=== PATIENT | female | born 1970 | race Caucasian/White ===

== ENCOUNTER 2021-04-22 16:19 | Observation (INO) ==
--- NOTE | 2021-04-22 16:27 | Emergency Department Note ---
Impression & Plan Stroke-like symptoms, Acute confusion, Slurred speech ED Provider Note Name: MADELINE DE LA CRUZ Age: 51 Sex: F Arrives Via: Ambulance Informant: Patient, EMS, Outpatient Physicians ED Provider: Devan Sanders MD Chief Complaint: stroke evaluation Impression: As Per Impressions Above Medical Decision Makin yr old healthy female with history migraines and previous Gastric Bypass arrives for evaluation of stroke like symptoms. Acute onset of confusion with slurred speech during zoom meeting this afternoon. Patient sent to ED emergently. On arrival without slurred speech nor significant confusion, though slightly slow to respond. No neuro focal deficits appreciated and with improving symptoms TPA would not be indicated. She was taken emergently to to CT for head/neck angio which was fortunately negative. Labs unremarkable. She has mostly cleared by repeat evaluations and looks well. Patient does have long history frequent migraines, and I could imagine this being complex atypical migraine, however she will clearly need further TIA work-up. She is not septic nor does she appear acutely under influence of substance. She did have BSG done in clinic and by EMS which was unremarkable. Hospitalist in to evaluate further. Prior Medical Record and Triage/Nursing Notes reviewed by Me Additional history obtained from chart and outpatient providers and ems Differentials:Infection, dehydration, metabolic abnormality, hypo/hyperglycemia, electrolyte disturbance, anemia, hypoxia, cardiac sources, intracerebral event, toxicologic, neurologic, as well as other pathologies. Vital Signs: reviewed and remarkable for no significant abnormalities Interventions: asa 324mg po Labs:Reviewed and remarkable for no significant abnormalities Imaging:See Below EKG:Per My Interpretation: Indication Stroke like symptoms: NSR 74 bpm, qtc 428. No Ectopy. No Ischemia. no previous for comparison Consults:Raj Hospitalist Plan: Disposition:Hospitalization. Condition: Good History of Present Illness:51 yr old female arrives for evaluation of stroke like symptoms. Patient with sudden onset confusion and slurred speech around 3:15 pm this afternoon. Noted as she was on a Zoom call at that time. 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 She notes that she has been dealing with some vertigo issues for the last 6 months which included MRI 6 months ago which she reports was negative. Stated she was feeling well other than didn't have lunch today. When symptoms started she ate some cake without improvement in symptoms. She notes she just feels foggy now. No further slurred speech and EMS notes that her speech has been alright on the way in. Patient without vision changes, focal deficits, headache, neck pain, cp, sob, syncope, nor other symptoms. No recent trauma nor injuries. Nothing makes better nor worse. No history of similar. History of migraines which she notes this is not similar to. ROS: See above HPI for pertinent positives & negatives. A total of 10 systems reviewed and were otherwise negative. Past Medical History:See Below Past Surgical History:See Below Family History:See Below Social History:See Below Home Medications:See Below Allergies:NKDA Vitals:Blood Pressure: 122/81, Pulse 75, RR 19, T 36.9C, O2 98% on RA Physical Exam: GENERAL: Patient is tired appearing and in minimal distress. EYES: No scleral icterus, unremarkable pupils. ENT: Mucous membranes moist, no nasal congestion. NECK: No masses appreciated, nomeningismus, trachea is midline. RESPIRATORY: No dyspnea. Clear to auscultation and equal bilaterally. No wheeze, no rhonchi. CARDIOVASCULAR: Regular rate and rhythm.No murmurs, rubs, gallops appreciated. GASTROINTESTINAL: Abdomen soft, non-tender, no peritonitis.Bowel sounds positive.No masses appreciated. BACK: No midline tenderness, no CVA tenderness EXTREMITIES: Normal motion all extremities, no cyanosis, no edema. NEUROLOGIC: Alert and oriented, no acute motor or sensory deficits, no focal weakness, cranial nerves grossly intact. SKIN: No rash, no jaundice, no diaphoresis. PSYCH: Appropriate GCS: 15 ED Course: Times/Reassessments: stable, feeling better and looks well Devan Sanders MD Past Med/Surg History Medical History Depression Insomnia Iron deficiency anemia Migraine Mitral valve prolapse Primary hyperparathyroidism Senile osteoporosis Surgical History History of x2 History of cholecystectomy History of colonoscopy History of reduction mammoplasty History of Fermin-en-Y gastric bypass Family History Mother Malignant melanoma Depression Denies family history of Stroke Social History Smoking Status: Former smoker packs per day: 5; Years Smoked: 16; Smoking End Date: 1998; Hx Alcohol Use: Yes Alcohol Intake Frequency: Monthly or Less Hx Substance Use: No Preferred Language: Turkish Communication Ability: Effective Hospice Clinical Manager Required: No Beliefs That Will Affect Care: None marital status: Current Living Situation: Family current occupational status: employed 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 [employer] Other Information That Helps Us Care for You: No Feels Safe at Home: Yes Safety Concerns: Feels Safe At This Time Assistive Devices: Glasses Allergies Allergies Allergy/AdvReac Type Severity Reaction Status Date / Time No Known Drug Allergies Allergy ` Verified 04/22/21 18:02 Home Meds Home Medications Medication Instructions Recorded Confirmed bupropion HCl 300 mg 24 hr tablet, 300 mg PO DAILY 04/22/21 04/22/21 extended release buspirone 10 mg tablet 10 mg PO HS 04/22/21 04/22/21 erenumab-aooe 70 mg/mL 70 mg SUBCUT MO 04/22/21 04/22/21 subcutaneous auto-injector (Aimovig Autoinjector) escitalopram oxalate 20 mg tablet 20 mg PO HS 04/22/21 04/22/21 ibuprofen 200 mg tablet (Advil) 600 mg PO Q6H PRN 04/22/21 04/22/21 lorazepam 1 mg tablet 1 mg PO BID PRN 04/22/21 04/22/21 sumatriptan succinate 6 mg/0.5 mL 6 mg SUBCUT BID PRN 04/22/21 04/22/21 subcutaneous solution zolpidem 10 mg tablet 10 mg PO HS 04/22/21 04/22/21 Results & Data (ED) Vital Signs Vital Signs - 24 hr 04/22/21 16:33 Temperature 36.9 C Temperature Source Oral Pulse Rate 75 Respiratory Rate 19 Respiratory Effort / Characteristics Non-Labored Spontaneous Respiratory Depth Normal Respiratory Pattern Regular Blood Pressure 122/81 Blood Pressure Mean 94 Blood Pressure Position Lying Pulse Oximetry 98 Oxygen Delivery Method Room Air Sepsis Recent Fever Within 48 Hours No Sepsis New/Unexplained Change in Mental Status N/A Sepsis Action Taken by Nursing No Action Required Laboratory Data Result diagrams: 04/23/21 08:00 04/23/21 08:00 Lab Results 04/22/21 04/22/21 04/22/21 Range/Units 16:30 16:30 16:30 WBC 7.23 (4.8-10.8) K/uL RBC 4.16 L (4.2-5.4) M/uL Hgb 12.9 (12.0-16.0) g/dL POC Hgb (12.0-16.0) g/dl Hct 39.0 (37-47) % POC Hct (37-47) % MCV 93.8 (80-100) fL MCH 31.0 (25-34) pg MCHC 33.1 (32-36) g/dL RDW Std Deviation 45.0 (36.4-46.3) fL RDW Coeff of Syed 13.1 (11.5-14.5) % Plt Count 293 (130-400) K/uL MPV 9.1 (7.4-10.4) fL Immature Gran % (Auto) 0.1 % Neut % (Auto) 77.1 % Lymph % (Auto) 13.7 % Pine % (Auto) 8.2 % Eos % (Auto) 0.6 % Baso % (Auto) 0.3 % Neut # (Auto) 5.58 (1.4-6.5) K/uL Lymph # (Auto) 0.99 L (1.2-3.4) K/uL Pine # (Auto) 0.59 (0.11-0.59) K/uL Eos # (Auto) 0.04 (0-0.5) K/uL Baso # (Auto) 0.02 (0-0.2) K/uL Immature Gran # (Auto) 0.01 (0.00-0.02) K/uL PT 9.9 (9.0-12.0) Seconds INR 1.0 (0.9-1.1) APTT 24.8 (21.0-31.0) Seconds PTT Ratio 0.9 POC Sodium (135-144) mmol/L Sodium 134 L (136-145) mmol/L POC Potassium (3.3-5.0) mmol/L Potassium 3.6 (3.5-5.1) mmol/L POC Chloride (101-112) mmol/L Chloride 101 (98-107) mmol/L Carbon Dioxide 29 (21-32) mmol/L POC Total CO2 (24-31) mmol/L Anion Gap 4.0 (3-11) POC Anion Gap (16-25) mmol/L POC BUN (7-18) mg/dl BUN 10 (7-18) mg/dl Creatinine 0.67 (0.6-1.2) mg/dl POC Creatinine (0.6-1.3) mg/dl Est Cr Clr Drug Dosing 87.0 ml/min Est GFR ( Amer) 117.1 ml/min Est GFR (Non-Af Amer) 101.1 ml/min BUN/Creatinine Ratio 14.7 (10-20) Glucose 87 (70-99) mg/dl POC Glucose (other) (70-99) mg/dl Calcium 8.7 (8.5-10.1) mg/dl POC Ioniz Calcium Fady (1.12-1.32) mmol/l Magnesium 3.3 H (1.8-2.4) mg/dl Total Bilirubin 0.2 (0.2-1) mg/dl AST 18 (15-37) U/L ALT 32 (12-78) U/L Alkaline Phosphatase 78 (45-117) U/L Troponin I < 0.015 (0-0.045) ng/ml Total Protein 7.2 (6.4-8.2) gm/dl Albumin 3.6 (3.4-5.0) gm/dl Globulin 3.6 (2.5-4.0) gm/dl Albumin/Globulin Ratio 1.0 (0.9-2) COVID-19 Eval Order SARS-CoV-2 (PCR) (Negative) Blood Type Antibody Screen 04/22/21 04/22/21 04/22/21 Range/Units 16:40 16:49 16:53 WBC (4.8-10.8) K/uL RBC (4.2-5.4) M/uL Hgb (12.0-16.0) g/dL POC Hgb 13.3 (12.0-16.0) g/dl Hct (37-47) % POC Hct 39 (37-47) % MCV (80-100) fL MCH (25-34) pg MCHC (32-36) g/dL RDW Std Deviation (36.4-46.3) fL RDW Coeff of Syed (11.5-14.5) % Plt Count (130-400) K/uL MPV (7.4-10.4) fL Immature Gran % (Auto) % Neut % (Auto) % Lymph % (Auto) % Pine % (Auto) % Eos % (Auto) % Baso % (Auto) % Neut # (Auto) (1.4-6.5) K/uL Lymph # (Auto) (1.2-3.4) K/uL Pine # (Auto) (0.11-0.59) K/uL Eos # (Auto) (0-0.5) K/uL Baso # (Auto) (0-0.2) K/uL Immature Gran # (Auto) (0.00-0.02) K/uL PT (9.0-12.0) Seconds INR (0.9-1.1) APTT (21.0-31.0) Seconds PTT Ratio POC Sodium 137 (135-144) mmol/L Sodium (136-145) mmol/L POC Potassium 3.7 (3.3-5.0) mmol/L Potassium (3.5-5.1) mmol/L POC Chloride 96 L (101-112) mmol/L Chloride (98-107) mmol/L Carbon Dioxide (21-32) mmol/L POC Total CO2 27 (24-31) mmol/L Anion Gap (3-11) POC Anion Gap 19.0 (16-25) mmol/L POC BUN 9 (7-18) mg/dl BUN (7-18) mg/dl Creatinine (0.6-1.2) mg/dl POC Creatinine 0.6 (0.6-1.3) mg/dl Est Cr Clr Drug Dosing ml/min Est GFR ( Amer) ml/min Est GFR (Non-Af Amer) ml/min BUN/Creatinine Ratio (10-20) Glucose (70-99) mg/dl POC Glucose (other) 87 (70-99) mg/dl Calcium (8.5-10.1) mg/dl POC Ioniz Calcium Fady 1.15 (1.12-1.32) mmol/l Magnesium (1.8-2.4) mg/dl Total Bilirubin (0.2-1) mg/dl AST (15-37) U/L ALT (12-78) U/L Alkaline Phosphatase (45-117) U/L Troponin I (0-0.045) ng/ml Total Protein (6.4-8.2) gm/dl Albumin (3.4-5.0) gm/dl Globulin (2.5-4.0) gm/dl Albumin/Globulin Ratio (0.9-2) COVID-19 Eval Order Covid19 at [facility] SARS-CoV-2 (PCR) (Negative) Blood Type A Positive Antibody Screen NEGATIVE 04/22/21 Range/Units 16:53 WBC (4.8-10.8) K/uL RBC (4.2-5.4) M/uL Hgb (12.0-16.0) g/dL POC Hgb (12.0-16.0) g/dl Hct (37-47) % POC Hct (37-47) % MCV (80-100) fL MCH (25-34) pg MCHC (32-36) g/dL RDW Std Deviation (36.4-46.3) fL RDW Coeff of Syed (11.5-14.5) % Plt Count (130-400) K/uL MPV (7.4-10.4) fL Immature Gran % (Auto) % Neut % (Auto) % Lymph % (Auto) % Pine % (Auto) % Eos % (Auto) % Baso % (Auto) % Neut # (Auto) (1.4-6.5) K/uL Lymph # (Auto) (1.2-3.4) K/uL Pine # (Auto) (0.11-0.59) K/uL Eos # (Auto) (0-0.5) K/uL Baso # (Auto) (0-0.2) K/uL Immature Gran # (Auto) (0.00-0.02) K/uL PT (9.0-12.0) Seconds INR (0.9-1.1) APTT (21.0-31.0) Seconds PTT Ratio POC Sodium (135-144) mmol/L Sodium (136-145) mmol/L POC Potassium (3.3-5.0) mmol/L Potassium (3.5-5.1) mmol/L POC Chloride (101-112) mmol/L Chloride (98-107) mmol/L Carbon Dioxide (21-32) mmol/L POC Total CO2 (24-31) mmol/L Anion Gap (3-11) POC Anion Gap (16-25) mmol/L POC BUN (7-18) mg/dl BUN (7-18) mg/dl Creatinine (0.6-1.2) mg/dl POC Creatinine (0.6-1.3) mg/dl Est Cr Clr Drug Dosing ml/min Est GFR ( Amer) ml/min Est GFR (Non-Af Amer) ml/min BUN/Creatinine Ratio (10-20) Glucose (70-99) mg/dl POC Glucose (other) (70-99) mg/dl Calcium (8.5-10.1) mg/dl POC Ioniz Calcium Fady (1.12-1.32) mmol/l Magnesium (1.8-2.4) mg/dl Total Bilirubin (0.2-1) mg/dl AST (15-37) U/L ALT (12-78) U/L Alkaline Phosphatase (45-117) U/L Troponin I (0-0.045) ng/ml Total Protein (6.4-8.2) gm/dl Albumin (3.4-5.0) gm/dl Globulin (2.5-4.0) gm/dl Albumin/Globulin Ratio (0.9-2) COVID-19 Eval Order SARS-CoV-2 (PCR) NEGATIVE (Negative) Blood Type Antibody Screen Administered Medications Acetaminophen (Acetaminophen 325 Mg Tab) 650 mg PO Q4H PRN PRN Reason: Pain or Fever Stop: 05/22/21 22:44 Last Admin: 04/23/21 10:59 Dose: 650 mg Documented by: [id number] Admin: 04/22/21 23:51 Dose: 650 mg Documented by: [id number] Aspirin (Aspirin 81 Mg Ectab) [facility] Stop: 05/23/21 08:59 Last Admin: 04/23/21 08:42 Dose: 81 mg Documented by: [id number] Bupropion HCl (Bupropion Xl 300 Mg Tabcr) 300 mg PO DAILY [facility] Stop: 05/23/21 08:59 Last Admin: 04/23/21 08:42 Dose: 300 mg Documented by: [id number] Buspirone HCl (Buspirone 5 Mg Tab) 10 mg PO DIMA Stop: 05/22/21 22:59 Last Admin: 04/22/21 23:52 Dose: 10 mg Documented by: [id number] Enoxaparin Sodium (Enoxaparin Inj 40 Mg/0.4 Ml Syr) 40 mg SQ Q24H DIMA Stop: 05/23/21 08:59 Last Admin: 04/23/21 08:42 Dose: 40 mg Documented by: [id number] Escitalopram Oxalate (Escitalopram Oxalate 20 Mg Tab) 20 mg PO DIMA Stop: 05/22/21 22:59 Last Admin: 04/22/21 23:52 Dose: 20 mg Documented by: [id number] Sodium Chloride (Nss 1000ml) 1,000 mls @ 80 mls/hr IV .[id number] ONE Stop: 04/23/21 21:32 Last Admin: 04/23/21 09:44 Dose: 80 mls/hr Documented by: [id number] Zolpidem Tartrate (Zolpidem Tartrate 10 Mg Tab) 10 mg PO [facility] Stop: 05/22/21 22:59 Last Admin: 04/22/21 23:51 Dose: 10 mg Documented by: [id number] Discontinued Medications Aspirin (Aspirin 81 Mg Chew) 324 mg PO NOW STA Stop: 04/22/21 17:27 Last Admin: 04/22/21 18:18 Dose: 324 mg Documented by: [id number] Gadobutrol (Gadobutrol 65ml Vial) 7 ml IV ONCE ONE Stop: 04/22/21 22:09 Last Admin: 04/22/21 22:08 Dose: 7 ml Documented by: [id number] Lorazepam (Ativan) 0.25 mg in 0.5 mls @ 0.5 mls/min IV NOW STA Stop: 04/22/21 21:10 Last Admin: 04/22/21 21:17 Dose: 0.5 mls/min Documented by: [id number] Ioversol (Optiray 320 125ml) 120 ml IV ONCE ONE Stop: 04/22/21 16:47 Last Admin: 04/22/21 16:47 Dose: 120 ml Documented by: [id number] Imaging Data Radiologist's Impression: Head CT 04/22/21 16:29 CT head/brain wo con CLINICAL HISTORY: Stroke Like Symptoms . Dizziness and confusion COMPARISON STUDY: No previous studies for comparison. TECHNIQUE: Standard CT of the Brain was performed without IV contrast. A dose lowering technique was utilized adhering to the principles of ALARA. FINDINGS: Extraaxial space: There is no evidence for subdural hematoma. There are no extra-axial fluid collections. Ventricles and cisterns: The ventricles are normal in size and configuration. There is no evidence for midline shift or mass effect. Parenchyma: There is no subarachnoid or intraparenchymal hemorrhage. There is no evidence for an acute infarct or cerebral edema. There is homogeneous attenuation of the brain parenchyma. There are no gross mass lesions. Osseous structures: There is no evidence for an acute fracture. The visualized paranasal sinuses are clear. The mastoid air cells are clear bilaterally. Soft tissues: There is no evidence for focal soft tissue swelling. IMPRESSION: No acute intracerebral pathology. ACT 112: Negative or not required by law. Electronically signed by: Abdelrahman Comer M.D. 04/22/2021 4:49 PM Discharge Plan Visit Data Chief Complaint: Stroke/CVA Symptoms Stated Complaint: STROKE SX ED Provider: Devan Sanders Discharge Problem: Stroke-like symptoms, Acute confusion, Slurred speech Patient Disposition: Admitted As Inpatient Discharge Instructions Interventions: ED Discharge Assessment Last Done: 04/22/21 22:00
[2021-04-22 16:46] LABS: Basophils # (auto) 0.02 K/uL (0-0.2); Basophils % (auto) 0.3 %; Eosinophils # (auto) 0.04 K/uL (0-0.5); Eosinophils % (auto) 0.6 %; Hemoglobin 12.9 g/dL (12.0-16.0); Immature Granulocytes # (auto) 0.01 K/uL (0.00-0.02); Immature Granulocytes % (auto) 0.1 %; Lymphocytes # (auto) 0.99 K/uL (1.2-3.4); Lymphocytes % (auto) 13.7 %; Mean Corpuscular Hgb Conc 33.1 g/dL (32-36); Mean Corpuscular Volume 93.8 fL (80-100); Mean Platelet Volume 9.1 fL (7.4-10.4); Monocytes # (auto) 0.59 K/uL (0.11-0.59); Monocytes % (auto) 8.2 %; Neutrophils # (auto) 5.58 K/uL (1.4-6.5); Neutrophils % (auto) 77.1 %; Platelet Count 293 K/uL (130-400); RDW Coefficient of Variation 13.1 % (11.5-14.5); Red Blood Count 4.16 M/uL (4.2-5.4); White Blood Count 7.23 K/uL (4.8-10.8)
[2021-04-22] MEDS ORDERED: OPTIRAY 320 125ml IV ONE (16:46)
--- NOTE | 2021-04-22 16:50 | CT Scan Report ---
CT head/brain wo con CLINICAL HISTORY: Stroke Like Symptoms . Dizziness and confusion COMPARISON STUDY: No previous studies for comparison. TECHNIQUE: Standard CT of the Brain was performed without IV contrast. A dose lowering technique was utilized adhering to the principles of ALARA. FINDINGS: Extraaxial space: There is no evidence for subdural hematoma. There are no extra-axial fluid collecti ons. Ventricles and cisterns: The ventricles are normal in size and configuration. There is no evidence f or midline shift or mass effect. Parenchyma: There is no subarachnoid or intraparenchymal hemorrhage. There is no evidence for an acu te infarct or cerebral edema. There is homogeneous attenuation of the brain parenchyma. There are no gross mass lesions. Osseous structures: There is no evidence for an acute fracture. The visualized paranasal sinuses are clear. The mastoid air cells are clear bilaterally. Soft tissues: There is no evidence for focal soft tissue swelling. IMPRESSION: No acute intracerebral pathology. ACT 112: Negative or not required by law. Electronically signed by: Abdelrahman Comer M.D. 04/22/2021 4:49 PM
[2021-04-22 16:52] LABS: iSTAT Creatinine 0.6 mg/dl (0.6-1.3); iSTAT Hemoglobin 13.3 g/dl (12.0-16.0); iSTAT Ionized Calcium 1.15 mmol/l (1.12-1.32); iSTAT Potassium 3.7 mmol/L (3.3-5.0)
[2021-04-22 16:58] LABS: Partial Thromboplastin Ratio 0.9; Partial Thromboplastin Time 24.8 Seconds (21.0-31.0); Prothrombin Time 9.9 Seconds (9.0-12.0)
[2021-04-22 17:00] LABS: Alanine Aminotransferase 32 U/L (12-78); Albumin Level 3.6 gm/dl (3.4-5.0); Aspartate Aminotransferase 18 U/L (15-37); BUN Creatinine Ratio 14.7 (10-20); Blood Urea Nitrogen 10 mg/dl (7-18); Calcium 8.7 mg/dl (8.5-10.1); Carbon Dioxide 29 mmol/L (21-32); Chloride 101 mmol/L (98-107); Est GFR (African American) 117.1 ml/min; Est GFR (Non-African American) 101.1 ml/min; Glucose 87 mg/dl (70-99); Magnesium 3.3 mg/dl (1.8-2.4); Potassium 3.6 mmol/L (3.5-5.1); Sodium 134 mmol/L (136-145)
[2021-04-22 17:05] LABS: Alkaline Phosphatase 78 U/L (45-117); Bilirubin,Total 0.2 mg/dl (0.2-1); Globulin 3.6 gm/dl (2.5-4.0); Total Protein 7.2 gm/dl (6.4-8.2); Troponin I < 0.015 ng/ml (0-0.045)
--- NOTE | 2021-04-22 17:10 | CT Scan Report ---
CT angio neck with con, CT angio head w con CLINICAL HISTORY: 51 years-old Female with Stroke Like Symptoms. Acute strokelike symptoms COMPARISON STUDY: CT head of same day TECHNIQUE: Following the IV administration of 120 mL of Optiray, CT angiogram of the head and neck wa s performed from the aortic arch to the skull apex. Images are reviewed in the axial, sagittal, and c oronal planes. 3-D MIPS images are created and assessed. IV contrast was administered without complic ation. All measurements were calculated based on NASCET criteria. A dose lowering technique was util ized adhering to the principles of ALARA. CT DOSE: 1114.01 mGy.cm FINDINGS: 4 vessel morphology of the thoracic aortic arch. Patency of the innominate and imaged subclavian gladis alfredito. The common and internal carotid arteries are widely patent. The middle and anterior cerebral ar teries are widely patent. The left vertebral artery originates directly from the aortic arch. Codomin ant and widely patent vertebral arteries. The basilar and posterior cerebral arteries are patent. Cer ebral venous sinuses are patent. There is no abnormal intracranial enhancement. No aneurysm, dissecti on, high-grade stenosis or arterial occlusion. Lung apices are clear. No pneumothorax. Unremarkable thyroid. Unremarkable soft tissues. No acute fra cture. Degenerative changes of the cervical spine. Mastoid air cells and paranasal sinuses are clear. IMPRESSION:Unremarkable CTA of the head and neck. ACT 112: Negative or not required by law. The above report was generated using voice recognition software. It may contain grammatical, syntax o r spelling errors. Electronically signed by: Vic Martinez M.D. 04/22/2021 5:08 PM
[2021-04-22] MEDS ORDERED: ASPIRIN 81 MG CHEW PO STA (17:26)
--- NOTE | 2021-04-22 20:18 | History & Physical Report ---
Date of Service April 22, 2021 Assessment & Plan (1) Stroke-like symptoms: (2) Transient amnesia: Plan: This is a 51-year-old female who has significant past medical history of primary hyperparathyroidism, history of gastric bypass, mitral valve prolapse, history of migraine, iron deficiency anemia, depression with anxiety, insomnia who presented to ED after experiencing strokelike symptoms of again at 315 this afternoon. Symptoms started at approximately 315 this afternoon. She developed an acute onset of confusion and was unable to properly work her computer or could remember how to log onto zoom. Coworkers were alerted and there was report of possible slurred speech. No facial droop or extremity weakness was noted. CTA of head and neck was unremarkable as well as a CT of the head. Differential diagnosis includes TIA, CVA, transient global amnesia, complex migraine among others Currently symptoms have resolved and she is without neurological deficit Admit to med telemetry Obtain MRI Consult neurology Obtain echocardiogram PT/OT/ST per protocol Continue ASA 81 mg daily until eval by neurology, received 325 mg in ED Lipid panel and A1c in a.m. Obtain ESR/CRP given complaint of headache Depression/anxiety Continue medications History of migraines Receives monthly injections and as needed Imitrex Denies history of complex migraine Dispo: Med telemetry, will discharge after full stroke work-up complete PCP: Juan Manuel Full code Patient was seen and examined in collaboration with Dr. Atkins, please see addendum History of Present Illness Chief Complaint: Stroke like sx at 15:15 Primary Care Provider: Navjot Zambrano, DO This is a 51-year-old female who has significant past medical history of primary hyperparathyroidism, history of gastric bypass, mitral valve prolapse, history of migraine, iron deficiency anemia, depression with anxiety, insomnia who presented to ED after experiencing strokelike symptoms of again at 315 this afternoon. She was at work when she was sitting at her desk and staring at her computer when she became acutely confused and was unaware of how to work her computer. She had a Zoom meeting that she needed to log onto, but was unaware how to do it. This was abnormal for her. She alerted her coworkers who also noted her to possibly be slurring her speech. There was no noted facial droop or extremity weakness reported. 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 Perry. They did check a blood sugar which was normal. She admits to feeling unwell and is sweaty at the time. She continues to feel shaky but otherwise her symptoms had resolved. Symptoms resolved in approximately an hour and a half. She has never experienced anything like this before. She does have a known history of migraines which typically develop with an aura of a foul smell followed by a supraorbital right-sided headache. She did wake up with a h eadache this morning but was in the back of her head. She also admits to having episodes of vertigo approximately 6 months ago. She did undergo MRI which was negative at the time. She also underwent 3 therapy sessions and treated with Alesha maneuver which resolved her symptoms. Her is at bedside. She denies any recent illness. She denies any fever, chills, sweats, lightheadedness, dizziness, chest pain, shortness breath, URI symptoms, nausea, vomiting, abdominal pain, change in her bowel or urinary habits. Her appetite is otherwise been normal. She does deal with the stress and anxiety, but has never presented like this. In ED she remained without neuro deficit. Her vital signs were within normal limits. Her CBC and CMP were generally unremarkable. She had an unremarkable CTA of the head and neck. She received 324 mg of aspirin in ED. Allergies Allergy/AdvReac Type Severity Reaction Status Date / Time No Known Drug Allergies Allergy ` Verified 04/22/21 18:02 Home Medications Medication Instructions Recorded Confirmed Type bupropion HCl 300 mg 24 hr tablet, 300 mg PO DAILY 04/22/21 04/22/21 History extended release buspirone 10 mg tablet 10 mg PO HS 04/22/21 04/22/21 History erenumab-aooe 70 mg/mL 70 mg SUBCUT MO 04/22/21 04/22/21 History subcutaneous auto-injector (Aimovig Autoinjector) escitalopram oxalate 20 mg tablet 20 mg PO HS 04/22/21 04/22/21 History ibuprofen 200 mg tablet (Advil) 600 mg PO Q6H PRN 04/22/21 04/22/21 History lorazepam 1 mg tablet 1 mg PO BID PRN 04/22/21 04/22/21 History sumatriptan succinate 6 mg/0.5 mL 6 mg SUBCUT BID PRN 04/22/21 04/22/21 History subcutaneous solution zolpidem 10 mg tablet 10 mg PO HS 04/22/21 04/22/21 History Past Med/Surg History Medical History Depression Insomnia Iron deficiency anemia Migraine Mitral valve prolapse Primary hyperparathyroidism Senile osteoporosis Surgical History History of x2 History of cholecystectomy History of colonoscopy History of reduction mammoplasty History of [place]-en-[place] gastric bypass Family History Mother Malignant melanoma Depression Denies family history of Stroke Social History Smoking Status: Former smoker packs per day: 5; Years Smoked: 16; Smoking End Date: 1998; Hx Alcohol Use: Yes Alcohol Intake Frequency: Monthly or Less Hx Substance Use: No Preferred Language: Paraguayan Communication Ability: Effective Division Order Technician Required: No Beliefs That Will Affect Care: None marital status: Current Living Situation: Family current occupational status: employed 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 [employer] Other Information That Helps Us Care for You: No Feels Safe at Home: Yes Safety Concerns: Feels Safe At This Time Assistive Devices: Glasses Review of Systems Review of Systems: All systems reviewed & are unremarkable except as noted in HPI & below Physical Exam Physical Exam: Constitutional: WD/WN, vitals as above, NAD, sitting up in bed, pleasant, conversing easily Head: Normocephalic, Atraumatic Eyes: PERRL, conjunctivae normal, anicteric sclerae ENMT: external ear and nose normal, oropharynx normal Neck: trachea midline, no thyromegaly normal visual inspection Respiratory: normal respiratory effort, lungs clear to auscultation, no wheeze, rales, rhonchi. Normal insp/exp effort, no accessory muscle use Cardiovascular: RRR, no murmur, no edema Vessels: no JVD or carotid bruit Chest: normal inspection of chest Abdomen: normal bowel sounds, soft, nontender, no hepatosplenomegaly Musculoskeletal: no cyanosis or clubbing, extremities motor strength 5/5 Skin: no rashes, warm and dry normal turgor Neurologic: PERRL, EOMI, accommodation nl, no face palsy, no dysarthria CN's II-XI intact bilaterally and moves all extremities Psychiatric: A+Ox3, euthymic affect : deferred Results & Data Results & Data ([facility]) Vital Signs (Past 12 Hours) Vital Signs Temp Pulse Resp BP Pulse Ox 04/22/21 16:33 36.9 C 75 19 122/[address] 04/22/21 16:29 CT head/brain wo con CLINICAL HISTORY: Stroke Like Symptoms . Dizziness and confusion COMPARISON STUDY: No previous studies for comparison. TECHNIQUE: Standard CT of the Brain was performed without IV contrast. A dose lowering technique was utilized adhering to the principles of ALARA. FINDINGS: Extraaxial space: There is no evidence for subdural hematoma. There are no extra-axial fluid collections. Ventricles and cisterns: The ventricles are normal in size and configuration. There is no evidence for midline shift or mass effect. Parenchyma: There is no subarachnoid or intraparenchymal hemorrhage. There is no evidence for an acute infarct or cerebral edema. There is homogeneous attenuation of the brain parenchyma. There are no gross mass lesions. Osseous structures: There is no evidence for an acute fracture. The visualized paranasal sinuses are clear. The mastoid air cells are clear bilaterally. Soft tissues: There is no evidence for focal soft tissue swelling. IMPRESSION: No acute intracerebral pathology. ACT 112: Negative or not required by law. Electronically signed by: Abdelrahman Comer M.D. 04/22/2021 4:49 PM Head CTA 04/22/21 16:29 CT angio neck with con, CT angio head w con CLINICAL HISTORY: 51 years-old Female with Stroke Like Symptoms. Acute strokelike symptoms COMPARISON STUDY: CT head of same day TECHNIQUE: Following the IV administration of 120 mL of Optiray, CT angiogram of the head and neck was performed from the aortic arch to the skull apex. Images are reviewed in the axial, sagittal, and coronal planes. 3-D MIPS images are created and assessed. IV contrast was administered without complication. All measurements were calculated based on NASCET criteria. A dose lowering techni que was utilized adhering to the principles of ALARA. CT DOSE: 1114.01 mGy.cm FINDINGS: 4 vessel morphology of the thoracic aortic arch. Patency of the innominate and imaged subclavian arteries. The common and internal carotid arteries are widely patent. The middle and anterior cerebral arteries are widely patent. The left vertebral artery originates directly from the aortic arch. Codominant and widely patent vertebral arteries. The basilar and posterior cerebral arteries are patent. Cerebral venous sinuses are patent. There is no abnormal intracranial enhancement. No aneurysm, dissection, high-grade stenosis or arterial occlusion. Lung apices are clear. No pneumothorax. Unremarkable thyroid. Unremarkable soft tissues. No acute fracture. Degenerative changes of the cervical spine. Mastoid air cells and paranasal sinuses are clear. IMPRESSION:Unremarkable CTA of the head and neck. ACT 112: Negative or not required by law. The above report was generated using voice recognition software. It may contain grammatical, syntax or spelling errors. Electronically signed by: Vic Martinez M.D. 04/22/2021 5:08 PM Neck CTA 04/22/21 16:29 CT angio neck with con, CT angio head w con CLINICAL HISTORY: 51 years-old Female with Stroke Like Symptoms. Acute strokelike symptoms COMPARISON STUDY: CT head of same day TECHNIQUE: Following the IV administration of 120 mL of Optiray, CT angiogram of the head and neck was performed from the aortic arch to the skull apex. Images are reviewed in the axial, sagittal, and coronal planes. 3-D MIPS images are created and assessed. IV contrast was administered without complication. All measurements were calculated based on NASCET criteria. A dose lowering technique was utilized adhering to the principles of ALARA. CT DOSE: 1114.01 mGy.cm FINDINGS: 4 vessel morphology of the thoracic aortic arch. Patency of the innominate and imaged subclavian arteries. The common and internal carotid arteries are widely patent. The middle and anterior cerebral arteries are widely patent. The left vertebral artery originates directly from the aortic arch. Codominant and widely patent vertebral arteries. The basilar and posterior cerebral arteries are patent. Cerebral venous sinuses are patent. There is no abnormal intracranial enhancement. No aneurysm, dissection, high-grade stenosis or arterial occlusion. Lung apices are clear. No pneumothorax. Unremarkable thyroid. Unremarkable soft tissues. No acute fracture. Degenerative changes of the cervical spine. Mastoid air cells and paranasal sinuses are clear. IMPRESSION:Unremarkable CTA of the head and neck. ACT 112: Negative or not required by law. The above report was generated using voice recognition software. It may contain grammatical, syntax or spelling errors. Electronically signed by: Vic Martinez M.D. 04/22/2021 5:08 PM Medications Administered Medication List Discontinued Medications Aspirin (Aspirin 81 Mg Chew) 324 mg PO NOW STA Stop: 04/22/21 17:27 Last Admin: 04/22/21 18:18 Dose: 324 mg Documented by: [id number] Ioversol (Optiray 320 125ml) 120 ml IV ONCE ONE Stop: 04/22/21 16:47 Last Admin: 04/22/21 16:47 Dose: 120 ml Documented by: [id number] ECG Rate (beats per minute): 74 Rhythm: normal sinus COVID-19 Results Results COVID-19 Adm Lab Results: RBC 3.98 M/uL (4.2-5.4) L 04/23/21 WBC 4.21 K/uL (4.8-10.8) L 04/23/21 Hgb 12.2 g/dL (12.0-16.0) 04/23/21 Hct 36.7 % (37-47) L 04/23/21 Plt Count 271 K/uL (130-400) 04/23/21 Neutrophils (%) (Auto) 65.0 % 04/23/21 Lymphocytes (%) (Auto) 23.5 % 04/23/21 Monocytes # (Auto) 0.42 K/uL (0.11-0.59) 04/23/21 Eosinophils # (Auto) 0.04 K/uL (0-0.5) 04/23/21 Immature Granulocyte % (Auto) 0.0 % 04/23/21 Neutrophils # (Auto) 2.74 K/uL (1.4-6.5) 04/23/21 Lymphocytes # (Auto) 0.99 K/uL (1.2-3.4) L 04/23/21 Monocytes # (Auto) 0.42 K/uL (0.11-0.59) 04/23/21 Eosinophils # (Auto) 0.04 K/uL (0-0.5) 04/23/21 Basophils # (Auto) 0.02 K/uL (0-0.2) 04/23/21 Immature Granulocyte # (Auto) 0.00 K/uL (0.00-0.02) 04/23/21 Na 141 mmol/L (136-145) 04/23/21 K 4.4 mmol/L (3.5-5.1) 04/23/21 Cl 108 mmol/L (98-107) H 04/23/21 CO2 28 mmol/L (21-32) 04/23/21 Anion Gap 6.0 (3-11) 04/23/21 BUN 10 mg/dl (7-18) 04/23/21 Creatinine 0.72 mg/dl (0.6-1.2) 04/23/21 BUN/Creatinine Ratio 13.7 (10-20) 04/23/21 Glucose Level 82 mg/dl (70-99) 04/23/21 Ca 9.1 mg/dl (8.5-10.1) 04/23/21 Total Bilirubin 0.2 mg/dl (0.2-1) 04/22/21 AST/SGOT 18 U/L (15-37) 04/22/21 ALT/SGPT 32 U/L (12-78) 04/22/21 Alkaline Phosphatase 78 U/L (45-117) 04/22/21 Total Protein 7.2 gm/dl (6.4-8.2) 04/22/21 Albumin 3.6 gm/dl (3.4-5.0) 04/22/21 Globulin 3.6 gm/dl (2.5-4.0) 04/22/21 Albumin/Globulin Ratio 1.0 (0.9-2) 04/22/21 Troponin I < 0.015 ng/ml (0-0.045) 04/22/21 CRP < 0.29 mg/dl (0-0.29) 04/23/21 PTT 24.8 Seconds (21.0-31.0) 04/22/21 INR 1.0 (0.9-1.1) 04/22/21 Triglycerides Level 47 mg/dl (0-150) 04/23/21 COVID-19 PCR NEGATIVE (Negative) 04/22/21 Code Status & VTE Plan Code Status Full Code VTE Prophylaxis Plan VTE Prophylaxis will be ordered: Yes Supervising Physician Co-Signing Physician Notes Patient is a 51-year-old female with past medical history of mood disorder, hypothyroidism, gastric bypass, MVP and other medical problems presents with history of sudden onset of confusion, slurred speech, headache which started this afternoon, lasting for about 1 hour. She admits to having migraine and takes medications to control it. Denies any focal weakness, numbness, bowel, bladder incontinence, vertigo, change in vision, facial droop. Patient also s tates having severe vertigo few months ago and had MRI as outpatient at the time. Currently while in ED, speech is clear and is completely oriented. She denies any focal weakness while in ED. Please review HPI for complete details of presentation. Imaging studies showed no acute findings. She received aspirin while in ED. On exam patient is moderately built and nourished, no apparent distress, normocephalic atraumatic, lungs are clear to auscultation, normal breath sounds, S1-S2, no murmur, trace pedal edema, abdomen soft, nontender, normal bowel sounds, alert, awake oriented, grossly no focal deficits. Patient is admitted for management of strokelike symptoms. DD: Complicated migraine. Agree with stroke work-up including MRI brain, echo, lipid panel, A1c. Neurology consulted. Neurochecks. PT OT, speech eval. Patient prefers not to be evaluated by psychiatry for mood disorder currently. Agree with starting aspirin 81 mg daily. Further recommendations based on above studies. I personally reviewed the record. Patient is interviewed and examined at bedside. Patient's care is coordinated with Claudia Kidd PA-C. Please refer to the documentation above for details of patient's presentation and for discussion of other issues.
[2021-04-22] MEDS ORDERED: LORazepam 0.25 MG/0.5 ML VIAL IV PRN (21:09)
[2021-04-22] MEDS ORDERED: LORazepam 0.25 MG/0.5 ML VIAL IV STA (21:09)
[2021-04-22] MEDS ORDERED: GADOBUTROL 65ML VIAL IV ONE (22:08)
[2021-04-22] MEDS ORDERED: POLYETHYLENE (MIRALAX) 17 GM PACK PO PRN (22:45)
[2021-04-22] MEDS ORDERED: ONDANSETRON INJ 2 MG/ML 2 ML VIAL IV PRN (22:45)
[2021-04-22] MEDS ORDERED: ALUMINUM/MAGNESIUM SUSP 30 ML UDC PO PRN (22:45)
[2021-04-22] MEDS ORDERED: MAGNESIUM HYDROXIDE SUSP 30 ML UDC PO PRN (22:45)
[2021-04-22] MEDS ORDERED: PHARMACIST DISCHARGE MED REC CONSULT PRN (22:45)
[2021-04-22] MEDS ORDERED: LORazepam 1 MG TAB PO PRN (22:51)
[2021-04-22] MEDS ORDERED: ZOLPIDEM TARTRATE 10 MG TAB PO SCH (23:00)
[2021-04-22] MEDS ORDERED: busPIRone 5 MG TAB PO SCH (23:00)
[2021-04-22] MEDS ORDERED: ESCITALOPRAM OXALATE 20 MG TAB PO SCH (23:00)
[2021-04-22] MEDS: ACETAMINOPHEN 325 MG TAB PO PRN (23:51)
--- NOTE | 2021-04-23 07:55 | Electrocardiogram Report ---
Test Reason : Blood Pressure : / mmHG Vent. Rate : 074 BPM Atrial Rate : 074 BPM P-R Int : 118 ms QRS Dur : 078 ms QT Int : 386 ms P-R-T Axes : 027 025 018 degrees QTc Int : 428 ms Normal sinus rhythm Nonspecific T wave abnormality No previous ECGs available Confirmed by Boy Rider ([id number]) on 04/23/2021 7:55:01 AM Referred By: REFERRED SELF Confirmed By:Boy Rider
[2021-04-23 08:40] LABS: Basophils # (auto) 0.02 K/uL (0-0.2); Basophils % (auto) 0.5 %; Eosinophils # (auto) 0.04 K/uL (0-0.5); Hematocrit (blood only) 36.7 % (37-47); Hemoglobin 12.2 g/dL (12.0-16.0); Lymphocytes # (auto) 0.99 K/uL (1.2-3.4); Lymphocytes % (auto) 23.5 %; Mean Corpuscular Hemoglobin 30.7 pg (25-34); Mean Corpuscular Hgb Conc 33.2 g/dL (32-36); Mean Corpuscular Volume 92.2 fL (80-100); Mean Platelet Volume 9.1 fL (7.4-10.4); Monocytes # (auto) 0.42 K/uL (0.11-0.59); Neutrophils # (auto) 2.74 K/uL (1.4-6.5); Platelet Count 271 K/uL (130-400); RDW Coefficient of Variation 13.2 % (11.5-14.5); RDW Standard Deviation 44.8 fL (36.4-46.3); Red Blood Count 3.98 M/uL (4.2-5.4); White Blood Count 4.21 K/uL (4.8-10.8)
[2021-04-23] MEDS ORDERED: buPROPion XL 300 MG TABCR PO SCH (09:00)
[2021-04-23] MEDS ORDERED: ENOXAPARIN INJ 40 MG/0.4 ML SYR SQ SCH (09:00)
[2021-04-23] MEDS ORDERED: ASPIRIN 81 MG ECTAB PO SCH (09:00)
[2021-04-23] MEDS ORDERED: SODIUM CHLORIDE 0.9% 1000ML 1,000 ML IV ONE (09:03)
[2021-04-23 09:54] LABS: BUN Creatinine Ratio 13.7 (10-20); Blood Urea Nitrogen 10 mg/dl (7-18); C Reactive Protein < 0.29 mg/dl (0-0.29); Calcium 9.1 mg/dl (8.5-10.1); Carbon Dioxide 28 mmol/L (21-32); Chloride 108 mmol/L (98-107); Chol HDL Ratio 2; Cholesterol 167 mg/dl (0-200); Creatinine Clr Calc Pharmacy 77.6 ml/min; Est GFR (African American) 111.6 ml/min; Est GFR (Non-African American) 96.3 ml/min; Glucose 82 mg/dl (70-99); HDL Cholesterol 86 mg/dl; LDL Cholesterol Calculated 72 mg/dl; Potassium 4.4 mmol/L (3.5-5.1); Sodium 141 mmol/L (136-145); Triglycerides 47 mg/dl (0-150); VLDL Cholesterol 9 mg/dl
[2021-04-23 10:01] LABS: Estimated Average Glucose 103 mg/dl; Hemoglobin A1C 5.2 % (4.5-5.6)
--- NOTE | 2021-04-23 10:12 | Magnetic Resonance Report ---
MR brain wo/w con CLINICAL HISTORY: stroke like sx. Episode of confusion and shakiness. COMPARISON STUDY: CT and CTA head from 04/22/2021 TECHNIQUE: Multiplanar multisequence images of the brain were performed before and after Gadavist, 7 mL of IV contrast. Diffusion weighted imaging and ADC mapping was also performed. FINDINGS: Extra-axial space: There is no evidence for a subdural hematoma, There are no extra-axial fluid louis ections. Ventricles and cisterns: The ventricles are normal in size and configuration. There is no evidence f or midline shift or mass effect. Parenchyma: On noncontrast images, there is no evidence for an acute hemorrhage or infarct. No acute diffusion abnormalities are noted on diffusion weighted imaging or ADC mapping. There is normal calvert -white differentiation. The sulci and gyri appear normal without effacement. The midline structures a re unremarkable. The posterior fossa structures appear normal. On postcontrast images, there is no evidence for enhancing mass lesion. Osseous structures: The paranasal sinuses are well aerated. The mastoid air cells are well aerated. Soft tissues: No focal soft tissue abnormalities are identified. IMPRESSION: No acute intracranial abnormalities. ACT 112: Negative or not required by law. Electronically signed by: Abdelrahman Comer M.D. 04/23/2021 10:11 AM
[2021-04-23] MEDS: ACETAMINOPHEN 325 MG TAB PO PRN (10:59)
--- NOTE | 2021-04-23 12:19 | Neurology Consultation ---
Date of Consultation April 23, 2021 Assessment & Plan (1) Stroke-like symptoms: 1. MRI no acute findings 2. CTA head/neck no significant stenosis or occusion 3. add aspirin 81 mg daily 4. PT/OT speech for any discharge needs 5. optimize HTN HLD, DM LDL <70 6. history of migraine but does not fit her typical symptoms 7. keep well hydrated and cut back on caffeine use 8. follow up with PCP no neurology follow up needed Supervising Physician Co-Signing Physician Notes Patient was seen and examined. I agree with Emily Mckeon PA-C as noted below. A 51 yo w with history of migraines admitted with brief spell of confusion, diaphoresis, shakiness, and garbled speech . No prior history of similar symptoms. No associated headache. Back to baseline. Denies increased stressors. No urinary symptoms or fever or chills. MRI negative for acute stroke. I do not believe this was a TIA. Seems to brief for TGA. Possible complex or acephalic migraine. Recommend outpatient EEG and follow up with neuro as needed for now. History of Present Illness Reason for Consultation: TIA vs complex migraine Requesting Physician: Bert Atkins MD Attending Physician: Bert Atkins MD History of Present Illness Echo Christiansen is a 51 year old female with a PMH primary hyperparathyroidism, gastric bypass, mitral valve prolapse, migraine, iron deficiency anemia, depression with anxiety, insomnia who presented to [facility] ED 04/22/2021 after experiencing strokelike symptoms. She was at work when she was sitting at her desk and staring at her computer when she became acutely confused and was unaware of how to work her computer. She had a Zoom meeting that she needed to log onto, but was unaware how to do it. She alerted her coworkers who also noted her to possibly be slurring her speech. There was no noted facial droop or extremity weakness reported. 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 Perry. They did check a blood sugar which was normal. She admits to feeling unwell and is sweaty at the time. She continued to feel shaky but otherwise her symptoms had resolved. Symptoms resolved in approximately an hour and a half. She has never experienced anything like this before. She does have a known history of migraines which typically develop with an aura of a foul smell followed by a supraorbital right-sided headache. She did wake up with a headache this morning but was in the back of her head. She also admits to having episodes of vertigo approximately 6 months ago. She did undergo MRI which was negative at the time. She also underwent 3 therapy sessions and treated with Alesha maneuver which resolved her symptoms. She does deal with the stress and anxiety. former smoker, minimal EtOH use, moderate caffeine use, no other drugs. There was increased stress at work due to a co worker passing away from [id number]. denies CP, SOB, abdominal pain vision changes. Allergies Allergy/AdvReac Type Severity Reaction Status Date / Time No Known Drug Allergies Allergy ` Verified 04/22/21 18:02 Home Medications Medication Instructions Recorded Confirmed Type bupropion HCl 300 mg 24 hr tablet, 300 mg PO DAILY 04/22/21 04/22/21 History extended release buspirone 10 mg tablet 10 mg PO HS 04/22/21 04/22/21 History erenumab-aooe 70 mg/mL 70 mg SUBCUT MO 04/22/21 04/22/21 History subcutaneous auto-injector (Aimovig Autoinjector) escitalopram oxalate 20 mg tablet 20 mg PO HS 04/22/21 04/22/21 History ibuprofen 200 mg tablet (Advil) 600 mg PO Q6H PRN 04/22/21 04/22/21 History lorazepam 1 mg tablet 1 mg PO BID PRN 04/22/21 04/22/21 History sumatriptan succinate 6 mg/0.5 mL 6 mg SUBCUT BID PRN 04/22/21 04/22/21 History subcutaneous solution zolpidem 10 mg tablet 10 mg PO HS 04/22/21 04/22/21 History aspirin 81 mg tablet,delayed 81 mg PO QAM #30 tab 04/23/21 Rx release Patient History Medical History Depression Insomnia Iron deficiency anemia Migraine Mitral valve prolapse Primary hyperparathyroidism Senile osteoporosis Surgical History History of x2 History of cholecystectomy History of colonoscopy History of reduction mammoplasty History of Ferm[place]-en-Y gastric bypass Family History Mother Malignant melanoma Depression Denies family history of Stroke Social History Smoking Status: Former smoker packs per day: 5; Years Smoked: 16; Smoking End Date: 1998; Hx Alcohol Use: Yes Alcohol Intake Frequency: Monthly or Less Hx Substance Use: No Preferred Language: Israeli Communication Ability: Effective Lead Fabricator Required: No Beliefs That Will Affect Care: None marital status: Current Living Situation: Family current occupational status: employed 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 [employer] Other Information That Helps Us Care for You: No Feels Safe at Home: Yes Safety Concerns: Feels Safe At This Time Assistive Devices: None Review of Systems Review of Systems: All systems reviewed & are unremarkable except as noted in HPI & below Physical Exam Physical Exam: Physical Exam: Constitutional: appearance over nourished, healthy Ears, Nose, Mouth and Throat: mucous membranes moist, no injection and skin normal, eyes normal Cardiovascular: normal S-1 and S-2 and regular rate and rhythm Respiratory: clear to auscultation (CTA) and no rales, ronchi or wheeze Musculoskeletal: no peripheral edema and good distal pulses Skin: no stigmata of neurocutaneous disease noted and normal and intact Eyes: extraocular muscles intact (EOMI) and pupils equal, round and reactive to light (PERRL) NEUROLOGIC EXAMINATION: Mental status: Alert and interactive Oriented to full date and location Oriented to person Speech fluent with no evidence of aphasia Cranial Nerves smile eye brow raise symmetric Reflexes: Deep tendon reflexes were symmetrical and graded 2/5. down going toes Sensory: intact to light cool touch Coordination: finger to nose no bi pass Gait/Stance: Posture normal. Gait normal: with steady with steps, base, turning, heel and toe walking and tandem gait. Motor: Negative for pronator drift of out stretched arms with eyes closed. Strength: biceps triceps hand gis database administrator 5/5 bilaterally, hip flex plantar flex ext 5/5 Results & Data ([facility]) Vital Signs (Past 12 Hours) Vital Signs Temp Pulse Pulse Resp BP Pulse Ox 04/23/21 11:54 37.0 C 78 16 96/63 L 96 04/23/21 08:00 67 04/23/21 07:33 36.7 C 67 16 97/63 L 98 04/23/21 04:05 36.7 C 81 18 93/57 L 96 04/23/21 00:19 64 Laboratory Results Abnormal lab results 04/22/21 04/22/21 04/22/21 Range/Units 16:30 16:30 16:40 WBC (4.8-10.8) K/uL RBC 4.16 L (4.2-5.4) M/uL Hct (37-47) % Lymph # (Auto) 0.99 L (1.2-3.4) K/uL Sodium 134 L (136-145) mmol/L POC Chloride 96 L (101-112) mmol/L Chloride (98-107) mmol/L Magnesium 3.3 H (1.8-2.4) mg/dl 04/23/21 04/23/21 Range/Units 08:00 08:00 WBC 4.21 L (4.8-10.8) K/uL RBC 3.98 L (4.2-5.4) M/uL Hct 36.7 L (37-47) % Lymph # (Auto) 0.99 L (1.2-3.4) K/uL Sodium (136-145) mmol/L POC Chloride (101-112) mmol/L Chloride 108 H (98-107) mmol/L Magnesium (1.8-2.4) mg/dl Diagnostic Findings CT head-No acute intracerebral pathology. CTA head/neck-Unremarkable CTA of the head and neck. TTE-60-65% no ASD MRI brain-No acute intracranial abnormalities.
--- NOTE | 2021-04-23 14:20 | Hospitalist Progress Note ---
Date of Service April 23, 2021 Assessment & Plan (1) Stroke-like symptoms: (2) Transient amnesia: Plan: Patient is a 51 yr female who has significant past medical history of primary hyperparathyroidism, history of gastric bypass, mitral valve prolapse, history of migraine, iron deficiency anemia, depression with anxiety, insomnia who presented to ED after experiencing strokelike symptoms of again at 315 this afternoon. Symptoms started at approximately 315 this afternoon. She developed an acute onset of confusion and was unable to properly work her computer or could remember how to log onto zoom. Coworkers were alerted and there was report of possible slurred speech. No facial droop or extremity weakness was noted. Strokelike symptoms DD: TIA Vs Complicated Migraine -CT Head:No acute intracerebral pathology. -Head/Neck CTA:Unremarkable CTA of the head and neck. -MRI Brain:No acute intracranial abnormalities -ECHO: Left ventricle wall motion is normal. EF 60 to 65%. Trace tricuspid regurgitation. Interatrial septum is intact, with no evidence of ASD. -LDL: 72 -HbA1C:5.2 -Started on aspirin 81 mg daily Neurology consulted PT OT evaluation Further management based on Neurology recommendations Depression/anxiety Continue home medications History of migraines Receives monthly injections and as needed Imitrex Denies history of complex migraine Code Status Full code Admission and Anticipated Discharge Date Admission Date: April 22, 2021 Subjective She is seen and examined bedside Still has mild right-sided headache Denies any recurrence of confusion, slurred speech Also denies any focal weakness Offers no other complaints Review of Systems Review of Systems: All systems reviewed & are unremarkable except as noted in Subjective Physical Exam Physical Exam: Physical Exam: Vitals signs as noted above General Appearance:Moderately built and nourished, no apparent distress Head: normocephalic, Atraumatic Eyes: normal inspection, EOMI Neck: supple, Trachea midline Respiratory/Chest: Normal breath sounds, CTA, No accessory muscle use Cardiovascular: S1, S2, No murmur Abdomen/GI:Soft, Non tender, Bowel sounds present Extremities/Musculoskeletal:normal inspection, Trace pedal edema Neurologic/Psych:AAOX3, grossly no focal neurological deficits Skin: normal color, warm Results & Data Results & Data ([facility]) Vital Signs (Past 12 Hours) Vital Signs Temp Pulse Pulse Resp BP Pulse Ox 04/23/21 11:54 37.0 C 78 16 96/63 L 96 04/23/21 08:00 67 11/05/21 07:33 36.7 C 67 16 97/63 L 98 04/23/21 04:05 36.7 C 81 18 93/57 L 96 Laboratory Results Short CBC 04/22/21 04/23/21 Range/Units 16:30 08:00 WBC 7.23 4.21 L (4.8-10.8) K/uL Hgb 12.9 12.2 (12.0-16.0) g/dL Hct 39.0 36.7 L (37-47) % Plt Count 293 271 (130-400) K/uL BMP 04/22/21 04/23/21 16:30 08:00 Sodium 134 L 141 D Potassium 3.6 4.4 D Chloride 101 108 H Carbon Dioxide 29 28 BUN 10 10 Creatinine 0.67 0.72 Glucose 87 82 Calcium 8.7 9.1 Cardiac Enzymes 04/22/21 Range/Units 16:30 Troponin I < 0.015 (0-0.045) ng/ml Liver Function 04/22/21 Range/Units 16:30 Total Bilirubin 0.2 (0.2-1) mg/dl AST 18 (15-37) U/L ALT 32 (12-78) U/L Alkaline Phosphatase 78 (45-117) U/L Albumin 3.6 (3.4-5.0) gm/dl
[2021-04-23] MEDS ORDERED: STROKE PATIENT DISCHARGE STA (16:05)
--- NOTE | 2021-04-23 16:06 | Discharge Summary ---
Date of Service April 23, 2021 Admission HPI Per Admitting Provider This is a 51-year-old female who has significant past medical history of primary hyperparathyroidism, history of gastric bypass, mitral valve prolapse, history of migraine, iron deficiency anemia, depression with anxiety, insomnia who presented to ED after experiencing strokelike symptoms of again at 315 this afternoon. She was at work when she was sitting at her desk and staring at her computer when she became acutely confused and was unaware of how to work her computer. She had a Zoom meeting that she needed to log onto, but was unaware how to do it. This was abnormal for her. She alerted her coworkers who also noted her to possibly be slurring her speech. There was no noted facial droop or extremity weakness reported. 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 Perry. They did check a blood sugar which was normal. She admits to feeling unwell and is sweaty at the time. She continues to feel shaky but otherwise her symptoms had resolved. Symptoms resolved in approximately an hour and a half. She has never experienced anything like this before. She does have a known history of migraines which typically develop with an aura of a foul smell followed by a supraorbital right-sided headache. She did wake up with a headache this morning but was in the back of her head. She also admits to having episodes of vertigo approximately 6 months ago. She did undergo MRI which was negative at the time. She also underwent 3 therapy sessions and treated with Alesha maneuver which resolved her symptoms. Her is at bedside. She denies any recent illness. She denies any fever, chills, sweats, lightheadedness, dizziness, chest pain, shortness breath, URI symptoms, nausea, vomiting, abdominal pain, change in her bowel or urinary habits. Her appetite is otherwise been normal. She does deal with the stress and anxiety, but has never presented like this. In ED she remained without neuro deficit. Her vital signs were within normal limits. Her CBC and CMP were generally unremarkable. She had an unremarkable CTA of the head and neck. She received 324 mg of aspirin in ED. Admission Exam Per Admitting Provider Physical Exam Physical Exam: Constitutional: WD/WN, vitals as above, NAD, sitting up in bed, pleasant, conversing easily Head: Normocephalic, Atraumatic Eyes: PERRL, conjunctivae normal, anicteric sclerae ENMT: external ear and nose normal, oropharynx normal Neck: trachea midline, no thyromegaly normal visual inspection Respiratory: normal respiratory effort, lungs clear to auscultation, no wheeze, rales, rhonchi. Normal insp/exp effort, no accessory muscle use Cardiovascular: RRR, no murmur, no edema Vessels: no JVD or carotid bruit Chest: normal inspection of chest Abdomen: normal bowel sounds, soft, nontender, no hepatosplenomegaly Musculoskeletal: no cyanosis or clubbing, extremities motor strength 5/5 Skin: no rashes, warm and dry normal turgor Neurologic: PERRL, EOMI, accommodation nl, no face palsy, no dysarthria CN's II-XI intact bilaterally and moves all extremities Psychiatric: A+Ox3, euthymic affect : deferred Principal Diagnosis Strokelike symptoms Discharge Data Allergies Allergy/AdvReac Type Severity Reaction Status Date / Time No Known Drug Allergies Allergy ` Verified 04/22/21 18:02 Consultations 04/22/21 17:36 ED Decision to Admit Stat 04/22/21 22:45 Consult Neurology Routine Ordered Studies 04/22/21 16:29 CT angio head w con Stat CT angio neck with con Stat CT head/brain wo con Stat 04/22/21 20:18 MR brain wo/w con Routine Hospital Course (1) Stroke-like symptoms: (2) Transient amnesia: Patient is a 51 yr female who has significant past medical history of primary hyperparathyroidism, history of gastric bypass, mitral valve prolapse, history of migraine, iron deficiency anemia, depression with anxiety, insomnia who presented to ED after experiencing strokelike symptoms of again at 315 this afternoon. Symptoms started at approximately 315 this afternoon. She developed an acute onset of confusion and was unable to properly work her computer or could remember how to log onto zoom. Coworkers were alerted and there was report of possible slurred speech. No facial droop or extremity weakness was noted. Strokelike symptoms DD: TIA Vs Complicated Migraine -CT Head:No acute intracerebral pathology. -Head/Neck CTA:Unremarkable CTA of the head and neck. -MRI Brain:No acute intracranial abnormalities -ECHO: Left ventricle wall motion is normal. EF 60 to 65%. Trace tricuspid regurgitation. Interatrial septum is intact, with no evidence of ASD. -LDL: 72 -HbA1C:5.2 -Started on aspirin 81 mg daily Appreciate neurology input PT OT evaluation Advised to follow-up with neurology as outpatient Depression/anxiety Continue home medications History of migraines Receives monthly injections and as needed Imitrex Denies history of complex migraine Code Status Full code Total Time Total Time Spent Total Time Spent (In Minutes): 37 minutes Discharge Plan Discharge Items Patient Disposition: Home - Self-Care Reason For Visit: TIA SX Discharge Diagnosis: Stroke-like symptoms Activity: Per Instructions section Exercise/Sports: Gradually increase as tolerated Non-emergency contact: Primary Care Provider and Neurologist Call non-emergency contact if: you have any medication questions, your symptoms worsen, your pain is concerning for you and you have a fever Follow-up/Referrals: Emily Mckeon PA-C [Physician Sumo Wrestler] - (Date & Time 06/15/2021 11:20 AM Provider Emily Mckeon PA-C Department Neurology [facility] ) Navjot Zambrano DO [Primary Care Provider] - (Date & Time 04/29/2021 10:20 AM Provider Navjot Zambrano DO Department Family Practice [facility] ) Diet: Heart Healthy Addtl Attending Provider Instructions: Follow-up with your primary care physician Dr. Navjot Zambrano on 04/29/2021 10:20 AM Follow-up with your neurologist Emily Mckeon PA-C on 06/15/2021 11:20 AM Start taking aspirin 81 mg daily as recommended by a neurologist. Cautious use of nonsteroidal anti-inflammatory drugs (Eg:Ibuprofen) while on aspirin--as they can worsen renal function, increases risk for bleeding. Seek immediate medical attention if your symptoms reoccur or worsen Please take all medications as instructed on discharge list below. Please call if you have any questions or problems. You can reach a [facility] hospitalist on duty at [facility] 24 hours a day by calling [phone] Risk Factors for Stroke: You can reduce your chances of stroke by working with your medical provider to adopt a healthy lifestyle. Some specific ways to lower your chance of stroke are: * If you are a smoker, now is the time to stop smoking cigarettes * If you are diabetic, improve the control of your blood sugars * Avoid excessive amounts of alcohol * Control high blood pressure * Lose weight if you are overweight * Be sure to lead an active lifestyle * Eat a healthy diet low in salt, cholesterol and fat You should know about other risk factors for stroke that you are unable to control. These include: * Age 55 years or older * Male gender * Certain racial groups: , or / * Family History of Stroke, Mini stroke or Heart Attack * Sickle Cell Disease Follow Up: It is important for you to keep your follow up appointments with your medical provider. Who to Call and When: Medical Emergencies: Call 911 immediately if you experience any of the following warning signs and symptoms of Stroke: * Sudden numbness or weakness of the face, arm or leg, especially on one side of the body * Sudden confusion, trouble speaking or understanding * Sudden trouble seeing in one or both eyes * Sudden trouble walking, dizziness, loss of balance or coordination * Sudden severe headache with no cause Do not delay calling 911 if you experience any warning signs or symptoms of a stroke. Delay in seeking medical attention may affect what treatments can be given to you. . Pending Studies at Discharge: No Stand-Alone Forms: Medications to Prevent Stroke, [facility], Smoking Cessation Medications and DC Order Prescriptions: New aspirin 81 mg Tablet,Delayed Release (Dr/Ec) 81 mg PO QAM Qty: 30 RF: 0 Continued sumatriptan succinate 6 mg/0.5 mL solution 6 mg SUBCUT BID PRN (Reason: Migraine Headache) RF: 0 buspirone 10 mg tablet 10 mg PO HS RF: 0 ibuprofen [Advil] 200 mg Tablet 600 mg PO Q6H PRN (Reason: Pain) RF: 0 lorazepam 1 mg tablet 1 mg PO BID PRN (Reason: Anxiety) RF: 0 zolpidem 10 mg tablet 10 mg PO HS RF: 0 escitalopram oxalate 20 mg tablet 20 mg PO HS RF: 0 bupropion HCl 300 mg tablet extended release 24 hr 300 mg PO DAILY RF: 0 Aimovig Autoinjector 70 mg/mL auto-injector 70 mg SUBCUT MO RF: 0 Discharge Orders: Discharge Order (Routine); Ordered 04/23/21 Ordered By: Bert Tapia/Other Patient Handouts: Symptoms of Stroke, Stroke Prevention Eating Healthy, Stroke Prevention Activity Admission Data Admit Date/Time: 04/22/21 18:31 Attending Provider: Bert Atkins Admit Provider: Bert Atkins Primary Care Provider: Navjot Zambrano Other Providers: Bert Atkins ; Wander Aguilar
--- NOTE | 2021-04-23 16:31 | Pharmacy Report ---
Pharmacist Stroke Counseling - Date of Service April 23, 2021 - Scope: Pharmacy has been consulted to provide medication discharge counseling for this patient admitted with stroke like symptoms as per the Pharmacist Discharge Counseling for Stroke Patients Protocol. - Medications on Discharge: Home Medications Medication Instructions Recorded Confirmed bupropion HCl 300 mg 24 hr tablet, 300 mg PO DAILY 04/22/21 04/22/21 extended release buspirone 10 mg tablet 10 mg PO HS 04/22/21 04/22/21 erenumab-aooe 70 mg/mL 70 mg SUBCUT MO 04/22/21 04/22/21 subcutaneous auto-injector (Aimovig Autoinjector) escitalopram oxalate 20 mg tablet 20 mg PO HS 04/22/21 04/22/21 ibuprofen 200 mg tablet (Advil) 600 mg PO Q6H PRN 04/22/21 04/22/21 lorazepam 1 mg tablet 1 mg PO BID PRN 04/22/21 04/22/21 sumatriptan succinate 6 mg/0.5 mL 6 mg SUBCUT BID PRN 04/22/21 04/22/21 subcutaneous solution zolpidem 10 mg tablet 10 mg PO HS 04/22/21 04/22/21 New Rx's Medication Instructions Recorded aspirin 81 mg tablet,delayed 81 mg PO QAM #30 tab 04/23/21 release - Action: The above medications, specifically ones for stroke treatment/prophylaxis, have been reviewed in detail with the patient and/or patient cash application representative(s) prior to discharge. This includes indication, common adverse reactions, drug interactions, and medication administration. Medication counseling has been employed using the teach-back method to ensure understanding. - Outcome: The patient and/or patient cash application representative(s) have demonstrated understanding of the medications. Additional comments: * Spoke with patient regarding new medication, ASA, being started upon discharge. * She has no concerns and had no questions regarding any of her medications. Thank you for allowing pharmacy to be involved in the care of this patient. Please call [phone] with any additional questions
== END 2021-04-23 17:16 | disposition home or self-care (01) ==
LOC: ED 16:19 → 2W 16:19 → 2N 04-23 00:03